=== PATIENT | female | born 1970 | race Caucasian/White ===

== ENCOUNTER 2020-03-21 09:19 | Inpatient (IN) | payer BC ==
[2020-03-21] MEDS ORDERED: Sodium Chloride 0.9% 1,000 ML IV STA (10:13)
[2020-03-21] MEDS ORDERED: Sodium Chloride 0.9% 10 ML Syringe FLUSH PRN (10:13)
--- NOTE | 2020-03-21 10:16 | EDM.PDOC ---
ED HPI GENERAL MEDICAL PROBLEM - General Chief Complaint: Abdominal Pain Stated Complaint: STOMACH PAIN FORM PAST 10 HOURS Time Seen by Provider: 03/21/20 10:05 Source of Information: Reports: Patient, Family, RN Notes Reviewed History Limitations: Reports: No Limitations - History of Present Illness INITIAL COMMENTS - FREE TEXT/NARRATIVE: 50-year-old female presents emergency department a complaint of abdominal pain, she states is predominantly in the right lower quadrant started at 330 this morning does have waves of nausea no vomiting states she is doing okay with bowel movements no shortness of breath or chest pain no fevers no history of abdominal surgeries Abdomen Pain Score (Numeric/FACES): 7 - Related Data Allergies Allergy/AdvReac Type Severity Reaction Status Date / Time No Known Allergies Allergy Verified 03/21/20 09:39 Home Meds: Home Meds Fluticasone Propion/Salmeterol [Advair 250-50 Diskus] 1 puff IH BID 03/21/20 [History] Fluticasone Propionate [Flonase] 1 dose IH BEDTIME 03/21/20 [History] Naproxen Sodium [Aleve] 220 mg PO BEDTIME 03/21/20 [History] Sertraline [Zoloft] 25 mg PO BEDTIME 03/21/20 [History] diphenhydrAMINE [Benadryl] 50 mg PO BEDTIME 03/21/20 [History] lisinopriL [Lisinopril] 20 mg PO BEDTIME 03/21/20 [History] traZODone 200 mg PO BEDTIME 03/21/20 [History] Past Medical History HEENT History: Reports: Impaired Vision Cardiovascular History: Reports: Hypertension Respiratory History: Reports: Asthma DIRECTOR CPG History: Reports: Neurological History: Reports: Migraines - Past Surgical History Head Surgeries/Procedures: Reports: None HEENT Surgical History: Reports: None Cardiovascular Surgical History: Reports: None Respiratory Surgical History: Reports: None Female Surgical History: Reports: None Neurological Surgical History: Reports: C-Spine Dermatological Surgical History: Reports: None Social & Family History - Tobacco Use Smoking Status *Q: Never Smoker - Caffeine Use Caffeine Use: Reports: Coffee - Alcohol Use Days Per Week of Alcohol Use: 7 Number of Drinks Per Day: 1 Total Drinks Per Week: 7 - Recreational Drug Use Recreational Drug Use: No ED ROS GENERAL - Review of Systems Review Of Systems: See Below Constitutional: Denies: Fever, Chills Respiratory: Reports: No Symptoms Cardiovascular: Reports: No Symptoms GI/Abdominal: Reports: Abdominal Pain, Flatus, Nausea. Denies: Constipation, Diarrhea, Vomiting : Reports: No Symptoms Musculoskeletal: Reports: Back Pain ED EXAM, GI/ABD - Physical Exam Exam: See Below Exam Limited By: No Limitations General Appearance: Alert, WD/WN, No Apparent Distress Respiratory/Chest: No Respiratory Distress, Lungs Clear, Normal Breath Sounds, No Accessory Muscle Use, Chest Non-Tender Cardiovascular: Regular Rate, Rhythm, No Murmur GI/Abdominal Exam: Normal Bowel Sounds, Soft, No Organomegaly, No Distention, No Abnormal Bruit, Tender (Right lower quadrant) Back Exam: Normal Inspection, Full Range of Motion, CVA Tenderness (R). No: CVA Tenderness (L) Course - Vital Signs Last Recorded V/S: Last Vital Signs Temp 98.4 F 03/21/20 09:44 Pulse 80 03/21/20 09:44 Resp 16 03/21/20 09:44 BP 141/92 H 03/21/20 09:44 Pulse Ox 99 03/21/20 09:44 - Orders/Labs/Meds Orders: Active Orders 24 hr Category Date Time Status Peripheral IV Care [RC] . DIRECTED Care 03/21/20 10:13 Active Iopamidol [Isovue-300 (61%)] Med 03/21/20 10:30 Active 100 ml IV . DIRECTED Sodium Chloride 0.9% [Normal Saline] 1,000 ml Med 03/21/20 10:13 Active IV .BOLUS Sodium Chloride 0.9% [Normal Saline] 80 ml Med 03/21/20 10:30 Active IV ASDIRECTED Sodium Chloride 0.9% [Saline Flush] Med 03/21/20 10:13 Active 10 ml FLUSH ASDIRECTED PRN Peripheral IV Insertion Adult [OM.PC] Urgent Oth 03/21/20 10:13 Ordered Medication Orders Sodium Chloride (Normal Saline) 1,000 mls @ 500 mls/hr IV .BOLUS STA Stop: 03/21/20 12:12 Last Admin: 03/21/20 11:05 Dose: 500 mls/hr Documented by: JOLENE Sodium Chloride (Normal Saline) 80 mls @ 3 mls/sec IV ASDIRECTED [facility] Last Admin: 03/21/20 10:48 Dose: 3 mls/sec Documented by: JONATHAN Iopamidol (Isovue-300 (61%)) 100 ml IV . DIRECTED SCOTTIE Last Admin: 03/21/20 10:47 Dose: 100 ml Documented by: JONATHAN Sodium Chloride (Saline Flush) 10 ml FLUSH ASDIRECTED PRN PRN Reason: Keep Vein Open Last Admin: 03/21/20 10:48 Dose: 10 ml Documented by: JONATHAN Labs: Laboratory Tests 03/21/20 03/21/20 03/21/20 Range/Units 10:22 10:22 10:22 WBC 17.3 H (4.5-11.0) K/uL RBC 3.96 (3.30-5.50) M/uL Hgb 13.0 (12.0-15.0) g/dL Hct 38.8 (36.0-48.0) % MCV 98 (80-98) fL MCH 33 H (27-31) pg MCHC 34 (32-36) % Plt Count 270 (150-400) K/uL Neut % (Auto) 93 H (36-66) % Lymph % (Auto) 3 L (24-44) % Pinal % (Auto) 4 (2-6) % Eos % (Auto) 0 L (2-4) % Baso % (Auto) 0 (0-1) % Sodium 139 L (140-148) mmol/L Potassium 3.6 (3.6-5.2) mmol/L Chloride 102 (100-108) mmol/L Carbon Dioxide 26 (21-32) mmol/L Anion Gap 14.6 H (5.0-14.0) mmol/L BUN 20 H (7-18) mg/dL Creatinine 0.9 (0.6-1.0) mg/dL Est Cr Clr Drug Dosing 68.79 mL/min Estimated GFR (MDRD) > 60 (>60) Glucose 136 H (74-106) mg/dL Lactic Acid 1.8 (0.4-2.0) mmol/L Calcium 8.8 (8.5-10.1) mg/dL Total Bilirubin 0.8 (0.2-1.0) mg/dL AST 16 (15-37) U/L ALT 20 (12-78) U/L Alkaline Phosphatase 76 (46-116) U/L Total Protein 7.4 (6.4-8.2) g/dL Albumin 4.1 (3.4-5.0) g/dL Globulin 3.3 (2.3-3.5) g/dL Albumin/Globulin Ratio 1.2 (1.2-2.2) Urine Color (YELLOW) Urine Appearance (CLEAR) Urine pH (5.0-8.0) Ur Specific Reva (1.008-1.030) Urine Protein (NEGATIVE) mg/dL Urine Glucose (UA) (NEGATIVE) mg/dL Urine Ketones (NEGATIVE) mg/dL Urine Occult Blood (NEGATIVE) Urine Nitrite (NEGATIVE) Urine Bilirubin (NEGATIVE) Urine Urobilinogen (0.2-1.0) EU/dL Ur Leukocyte Esterase (NEGATIVE) Urine RBC (0-5) Urine WBC (0-5) Ur Epithelial Cells Urine Bacteria Urine Mucus 03/21/20 Range/Units 10:25 WBC (4.5-11.0) K/uL RBC (3.30-5.50) M/uL Hgb (12.0-15.0) g/dL Hct (36.0-48.0) % MCV (80-98) fL MCH (27-31) pg MCHC (32-36) % Plt Count (150-400) K/uL Neut % (Auto) (36-66) % Lymph % (Auto) (24-44) % Pinal % (Auto) (2-6) % Eos % (Auto) (2-4) % Baso % (Auto) (0-1) % Sodium (140-148) mmol/L Potassium (3.6-5.2) mmol/L Chloride (100-108) mmol/L Carbon Dioxide (21-32) mmol/L Anion Gap (5.0-14.0) mmol/L BUN (7-18) mg/dL Creatinine (0.6-1.0) mg/dL Est Cr Clr Drug Dosing mL/min Estimated GFR (MDRD) (>60) Glucose (74-106) mg/dL Lactic Acid (0.4-2.0) mmol/L Calcium (8.5-10.1) mg/dL Total Bilirubin (0.2-1.0) mg/dL AST (15-37) U/L ALT (12-78) U/L Alkaline Phosphatase (46-116) U/L Total Protein (6.4-8.2) g/dL Albumin (3.4-5.0) g/dL Globulin (2.3-3.5) g/dL Albumin/Globulin Ratio (1.2-2.2) Urine Color Yellow (YELLOW) Urine Appearance Clear (CLEAR) Urine pH 7.0 (5.0-8.0) Ur Specific Reva 1.025 (1.008-1.030) Urine Protein Trace H (NEGATIVE) mg/dL Urine Glucose (UA) Negative (NEGATIVE) mg/dL Urine Ketones Negative (NEGATIVE) mg/dL Urine Occult Blood Negative (NEGATIVE) Urine Nitrite Negative (NEGATIVE) Urine Bilirubin Negative (NEGATIVE) Urine Urobilinogen 2.0 H (0.2-1.0) EU/dL Ur Leukocyte Esterase Negative (NEGATIVE) Urine RBC Not seen (0-5) Urine WBC 0-5 (0-5) Ur Epithelial Cells Not seen Urine Bacteria Not seen Urine Mucus Few Meds: Medications Generic Name Dose Route Start Last Admin Trade Name Freq PRN Reason Stop Dose Admin Sodium Chloride 1,000 mls @ 500 mls/hr 03/21/20 10:13 03/21/20 11:05 Normal Saline IV 03/21/20 12:12 500 mls/hr .BOLUS STA Administration Sodium Chloride 80 mls @ 3 mls/sec 03/21/20 10:30 03/21/20 10:48 Normal Saline IV 3 mls/sec ASDIRECTED SCOTTIE Administration Iopamidol 100 ml 03/21/20 10:30 03/21/20 10:47 Isovue-300 (61%) IV 100 ml . DIRECTED SCOTTIE Administration Sodium Chloride 10 ml 03/21/20 10:13 03/21/20 10:48 Saline Flush FLUSH 10 ml ASDIRECTED PRN Administration Keep Vein Open Discontinued Medications Generic Name Dose Route Start Last Admin Trade Name Freq PRN Reason Stop Dose Admin Fentanyl 50 mcg 03/21/20 11:40 Sublimaze IVPUSH 03/21/20 11:41 ONETIME ONE Ondansetron HCl 4 mg 03/21/20 11:40 Zofran IVPUSH 03/21/20 11:41 ONETIME ONE Departure - Departure Time of Disposition: 11:47 Disposition: Admitted As Inpatient 68 Condition: Fair Clinical Impression: Appendicitis Qualifiers: Appendicitis type: acute appendicitis Acute appendicitis type: with localized peritonitis Appendicitis gangrene presence: without gangrene Appendicitis perforation presence: without perforation Appendicitis abscess presence: without abscess Qualified Code(s): K35.30 - Acute appendicitis with localized peritonitis, without perforation or gangrene - Discharge Information Instructions: Appendicitis, Adult Referrals: PCP,None [Primary Care Provider] - Forms: ED Department Discharge Sepsis Event Note (ED) - Evaluation Sepsis Screening Result: No Definite Risk - Focused Exam Vital Signs: Vital Signs Temp Pulse Resp BP Pulse Ox 03/21/20 09:44 98.4 F 80 16 141/92 H 99 03/21/20 09:43 98.4 F 80 16 141/92 H 99 - My Orders Last 24 Hours: My Active Orders 03/21/20 10:13 Peripheral IV Care [RC] . DIRECTED Sodium Chloride 0.9% [Normal Saline] 1,000 ml IV .BOLUS Sodium Chloride 0.9% [Saline Flush] 10 ml FLUSH ASDIRECTED PRN Peripheral IV Insertion Adult [OM.PC] Urgent 03/21/20 10:30 Iopamidol [Isovue-300 (61%)] 100 ml IV . DIRECTED Sodium Chloride 0.9% [Normal Saline] 80 ml IV ASDIRECTED - Assessment/Plan Last 24 Hours: My Active Orders 03/21/20 10:13 Peripheral IV Care [RC] . DIRECTED Sodium Chloride 0.9% [Normal Saline] 1,000 ml IV .BOLUS Sodium Chloride 0.9% [Saline Flush] 10 ml FLUSH ASDIRECTED PRN Peripheral IV Insertion Adult [OM.PC] Urgent 03/21/20 10:30 Iopamidol [Isovue-300 (61%)] 100 ml IV . DIRECTED Sodium Chloride 0.9% [Normal Saline] 80 ml IV ASDIRECTED Plan: Assessment Acuity = acute Site and laterality = acute appendicitis Etiology = unknown Manifestations = abdominal pain Location of injury = Home Lab values = WBC elevated 17.5 consistent with a leukocytosis remainder of CBC, CMP and urinalysis unremarkable CT scan does show acute appendicitis without free air or abscess Plan Call discussed case Dr. Price at 1140 kindly agreed to come evaluate patient in the hospital plan for laparoscopic appendectomy This note was dictated using [email or web address] voice recognition software please call with any questions on syntax or grammar.
[2020-03-21] MEDS ORDERED: Iopamidol 612 MG/ML 100 ML Bottle IV SCH (10:30)
[2020-03-21] MEDS ORDERED: Sodium Chloride 0.9% 80 ML IV SCH (10:30)
--- NOTE | 2020-03-21 11:38 | CRLCT ---
Indication: Right lower quadrant pain. Technique: Multiple contiguous axial images were obtained from the lung bases through the symphysis pubis after the intravenous administration of 100 cc Isovue-300. Please note that all CT scans at this facility use dose modulation, iterative reconstruction, and/or weight-based dosing when appropriate to reduce radiation dose to as low as reasonably achievable. Comparison: None Findings: The lung bases are clear. The heart is normal in size. No pericardial effusion is identified. The liver, spleen, pancreas, gallbladder, adrenals, and kidneys are normal. No intrahepatic biliary ductal dilatation is identified. No hydronephrosis is identified. In the pelvis, the uterus and ovaries are grossly normal morphology. The urinary bladder is grossly normal. The small and large bowel are normal in caliber. Fat stranding is identified in the right lower quadrant surrounding an enlarged appendix. No abscess is identified. No free air is identified. The appendix measures 12 mm in size. A minimal amount of free fluid is identified in the right lower quadrant. No free air is identified within the abdomen or pelvis. The aorta is normal in caliber. No lytic or blastic lesions of the spine are identified. Impression: Findings consistent with appendicitis. No abscess or free air is identified. These findings were called to Officer at the time of this dictation. Please note that all CT scans at this facility use dose modulation, iterative reconstruction, and/or weight-based dosing when appropriate to reduce radiation dose to as low as reasonably achievable. Dictated by Jennifer Edwards MD @ Mar 21 2020 11:26AM Signed by Dr. Jennifer Edwards @ Mar 21 2020 11:38AM
[2020-03-21] MEDS ORDERED: Ondansetron 4 MG/2 ML SDV IVPUSH ONE (11:40)
[2020-03-21] MEDS ORDERED: fentaNYL 100 MCG/2 ML SDV IVPUSH ONE (11:40)
[2020-03-21] MEDS ORDERED: Ondansetron 4 MG/2 ML SDV IV PRN (11:52)
[2020-03-21] MEDS ORDERED: Ampicillin/Sulbactam Na 3 GM in Sodium Chloride 0.9% 100 ML IV SCH (12:30)
[2020-03-21] MEDS: Lactated Ringers 1,000 ML IV SCH ×2 (13:10→23:35)
[2020-03-21] MEDS: fentaNYL 100 MCG/2 ML SDV IVPUSH PRN ×4 (13:51→23:38)
[2020-03-21] MEDS ORDERED: Albuterol 8 GM Inhaler INH PRN (13:52)
[2020-03-21] MEDS ORDERED: Naproxen 250 MG Tab PO PRN (14:23)
[2020-03-21] MEDS ORDERED: Diclofenac Sodium 75 MG Tab.EC PO SCH (17:00)
[2020-03-21] MEDS: Ampicillin/Sulbactam Na 3 GM in Sodium Chloride 0.9% 100 ML IV SCH ×2 (18:04→23:32)
[2020-03-21] MEDS ORDERED: Diclofenac Sodium 75 MG Tab.EC PO PRN (18:28)
[2020-03-21] MEDS ORDERED: Non-Formulary Medication 1 Each (Trazodone [Trazodone] 200 MG) PO SCH (21:00)
[2020-03-21] MEDS ORDERED: Fluticasone Propionate Nasal Spray 16 GM Bottle NAS SCH (21:00)
[2020-03-21] MEDS ORDERED: traZODone 50 MG Tab PO SCH (21:00)
[2020-03-21] MEDS ORDERED: DIPHENHYDRAMINE 50 MG PO SCH (21:00)
[2020-03-21] MEDS ORDERED: diphenhydrAMINE 25 MG Cap PO SCH (21:00)
[2020-03-21] MEDS ORDERED: Non-Formulary Medication 1 Each (Fluticasone Propion/Salmeterol [Advair 250-50 Diskus] 1 P IH SCH (21:00)
[2020-03-21] MEDS ORDERED: Lisinopril 20 MG Tab PO SCH ×2 (21:00)
[2020-03-21] MEDS ORDERED: Sertraline 25 MG Tab PO SCH (21:00)
[2020-03-21] MEDS: WIXELA INH SCH (21:42)
[2020-03-22] MEDS: Ampicillin/Sulbactam Na 3 GM in Sodium Chloride 0.9% 100 ML IV SCH ×4 (06:18→23:33)
[2020-03-22] MEDS ORDERED: Bupivacaine 0.5%/EPINEPHrine 1:200,000 50 ML MDV ONE (06:37)
[2020-03-22] MEDS ORDERED: Ropivacaine 36 ML, dexAMETHasone 8 MG, EPINEPHrine 0.4 MG, Sodium Chloride 0.9% 41.6 ML NERVRT SCH ×4 (07:00)
[2020-03-22] MEDS ORDERED: Albuterol/Ipratropium 3.0-0.5 MG/3 ML Neb Soln NEB ONE (07:00)
[2020-03-22] MEDS: WIXELA INH SCH (07:02)
[2020-03-22] MEDS ORDERED: Succinylcholine 200 MG/10 ML MDV ONE (07:05)
[2020-03-22] MEDS ORDERED: Rocuronium 50 MG/5 ML Vial ONE (07:05)
[2020-03-22] MEDS ORDERED: Neostigmine Methylsulfate 1 MG/ML 5 ML Syringe ONE (07:05)
[2020-03-22] MEDS ORDERED: Ondansetron 4 MG/2 ML SDV ONE (07:05)
[2020-03-22] MEDS ORDERED: fentaNYL 250 MCG/5 ML SDV ONE (07:05)
[2020-03-22] MEDS ORDERED: Glycopyrrolate 0.2 MG/ML 5 ML MDV ONE (07:05)
[2020-03-22] MEDS ORDERED: Propofol 200 MG/20 ML SDV ONE (07:05)
[2020-03-22] MEDS ORDERED: Dexamethasone 4 MG/ML SDV ONE (07:05)
[2020-03-22] MEDS ORDERED: Lactated Ringers 1,000 ML ONE (07:39)
[2020-03-22] MEDS ORDERED: Ketorolac 60 MG/2 ML SDV ONE (08:41)
[2020-03-22] MEDS ORDERED: HYDROmorphone 0.5 MG/0.5 ML Syringe IVPUSH PRN (09:44)
[2020-03-22] MEDS ORDERED: oxyCODONE 5 MG Tab PO PRN (09:45)
[2020-03-22] MEDS ORDERED: Dextrose 5%-Lactated Ringers 1,000 ML IV SCH (09:45)
[2020-03-22] MEDS ORDERED: HYDROmorphone 1 MG/ML Syringe IV PRN (09:45)
[2020-03-22] MEDS ORDERED: hydrOXYzine HCL 100 MG/2 ML SDV IM PRN (09:46)
[2020-03-22] MEDS ORDERED: Acetaminophen 500 MG Tab PO SCH (10:00)
[2020-03-22] MEDS ORDERED: Acetaminophen/HYDROcodone 325-5 MG Tab PO PRN (13:19)
[2020-03-22] MEDS: Cyclobenzaprine 10 MG Tab PO PRN ×2 (15:35→23:36)
[2020-03-22] MEDS: Acetaminophen/HYDROcodone 325-5 MG Tab PO PRN ×2 (17:49→21:50)
[2020-03-23] MEDS: Acetaminophen/HYDROcodone 325-5 MG Tab PO PRN ×3 (03:59→08:54)
[2020-03-23] MEDS: Ampicillin/Sulbactam Na 3 GM in Sodium Chloride 0.9% 100 ML IV SCH (06:03)
[2020-03-23] MEDS: Cyclobenzaprine 10 MG Tab PO PRN (08:53)
--- NOTE | 2020-03-23 15:12 | DISCH ---
ADMISSION DIAGNOSIS: Abdominal pain. DISCHARGE DIAGNOSES: Diagnostic laparoscopy with: 1. Partial colectomy involving removal of overlying appendix. 2. Drainage of pericolonic abscess. POSTOPERATIVE DIAGNOSES: 1. Focally perforated appendix with inflammatory necrosis extending to cecal base. 2. Pericolonic abscess. Date of surgery 03/22/2020. Surgeon: Robin Price MD. HISTORY: Kylee Guerra is a 50-year-old female who presented to [place], [place], with abdominal pain on 03/21/2020. She had abdominal pain for the past 10 hours associated with waves of nausea. After preoperative evaluation and discussion of possible risks and possible complications, she wished to proceed with surgical procedure. HOSPITAL COURSE: Kylee had her surgery on 03/22/2020. She had no operative complications. On postoperative day #1, vital signs were stable. Pain was well managed. Activity was good. She tolerated a regular diet, and she was able to be discharged to home. PHYSICAL EXAMINATION: GENERAL: Kylee Guerra is a 50-year-old female. Height is 5 feet 5 inches, weight is 173 pounds. VITAL SIGNS: TPR at 0723; 97.4, 60, 18, blood pressure 117/72. HEENT: Negative. NECK: Supple. HEART: Regular rate and rhythm. LUNGS: Clear. ABDOMEN: JONI drain intact, will be removed prior to discharge and that has put out 70 mL of serosanguineous drainage. Abdominal binder is on. EXTREMITIES: Without peripheral edema. DISPOSITION: Discharged to home. CONDITION: Stable and improving. FOLLOWUP: Appointment with primary care provider in 1 week to have sutures removed. HOME MEDICATION: 1. Augmentin 875 mg 1 tablet b.i.d. for 5 days #10. 2. Colace 100 mg oral twice daily #60. 3. Milk of magnesia 30 mL to take one tomorrow 03/24/2020, if needed, repeat in a.m., sent to home with patient. 4. Belmont 5/325 mg 1 to 2 every 4 hours p.r.n. pain #42. 5. To resume home medication of Proventil inhaler 2 puffs every 4 hours p.r.n. shortness of breath, fluticasone propionate/salmeterol one puff inhalation twice daily, naproxen sodium 220 mg oral at bedtime, sertraline 25 mg oral at bedtime, Benadryl 50 mg at bedtime, lisinopril 40 mg oral at bedtime, trazodone 100 mg oral at bedtime. DISCHARGE INSTRUCTIONS: DIET: Usual diet as tolerated. Drink 8 to 10 glasses of water a day. ACTIVITY: No lifting over 10 pounds for 1 week. OTHER ACTIVITY: Walk at least 6 times inside your home. DRIVING AFTER DISCHARGE: Do not drive for 1 week and while on pain medication. SHOWER/BATHING: May shower. Keep operative site clean and dry. Wear abdominal binder for 2 weeks and longer if tolerated. Notify provider if any fever, increased pain, swelling, redness, drainage, nausea, or vomiting. SPECIAL INSTRUCTION: 1. Follow up with your medical provider in 1 week to have sutures removed. 2. Use incentive spirometer 10 times every hour while awake for 1 week.
--- NOTE | 2020-03-25 12:09 | OR ---
DATE OF PROCEDURE: 03/22/2020 SURGEON: Robin Price MD PREOPERATIVE DIAGNOSIS: Acute appendicitis. POSTOPERATIVE DIAGNOSES: 1. Focal area of perforated appendicitis with inflammatory necrosis extending onto the cecal base. 2. Pericolonic abscess. PROCEDURE: Diagnostic laparoscopy with: 1. Partial cecectomy including removal of overlying appendix. 2. Drainage of pericolonic abscess. ANESTHESIA: General. INDICATIONS FOR PROCEDURE: This is a 50-year-old female, admitted overnight with a picture of acute appendicitis. Preoperative antibiotics have been given and the plan is to proceed with a diagnostic laparoscopy with laparotomy if necessary, and appendectomy. The procedures as indicated might be necessary was reviewed with the patient and . Otherwise, risks such as leaks from the GI tract staple line, postoperative abscess formation, and a remote possibility of cardiopulmonary, septic, or hemorrhagic complications leading to were discussed, and the patient wishes to proceed. DETAILS OF PROCEDURE: The patient was taken to the operating room. After general endotracheal anesthesia was induced, Lundberg catheter was inserted, and the abdomen prepped and draped. Three fingerbreadths superior and to the left of the umbilicus, a transverse incision was made and the peritoneal cavity entered under direct vision with an Optiview trocar, inflated to 15 mmHg with CO2. Laparoscope was then reinserted. No underlying trocar insertion site injuries were seen. Following this, 12 mm trocar was placed in the left lower quadrant and right upper quadrant and the lower abdomen examined. As the cecum was retracted upward, the patient was noted to have some thin purulence located beginning in the upper pelvis extending along the area of the cecal base and from there up along the lateral aspect of the descending colon just to the point below the liver. This abscess fluid was then evacuated and sent for culture. The appendix was then mobilized upward. This patient had what appeared to be focally perforated appendicitis. With the appendix being retracted anteriorly, the mesoappendix was divided with Harmonic scalpel down along the cecal base. The necrosis and inflammation of the appendix appeared to extend somewhat onto the cecum, therefore we elected to proceed with a partial cecectomy, which would provide a more satisfactory and safe staple line. This was accomplished with 2 firings of the SUGEY purple loads. The appendix and cecal base were then placed in a specimen bag and retrieved through the left lower quadrant site without any overt contamination of the soft tissues in the abdominal wall during its passage. The area of dissection was inspected. There was quite a bit of edema in the area of the mesoappendix division site and this area along with the cecal staple line was then reinforced with 4 mL of fibrin sealant and some omentum then placed over the area to provide some additional coverage. A Eduard-Gautam drain was then placed to the 5 mm trocar site and the right flank and positioned across the area above the cecal staple line and from there down into the pelvis. At that point, no further problems were noted. Bilateral transversus abdominis plane blocks were placed and the trocars were sequentially removed. The fascia at the sites was closed with 0 Vicryl stitch and the skin with 4-0 Vicryl skin stitch. The wounds were then anesthetized with 1% lidocaine as well, and the patient was taken to the recovery room in satisfactory condition. There were no evident complications. Robin Price MD /[id number]
== END 2020-03-23 09:05 | disposition home or self-care (01) | DRG 221 ==
LOC: JP.ED 09:19 → JP.MS 11:52
PROVIDERS: ADMIT Surgery; ATTEND Surgery
PROC: 0DBH4ZZ Excision of Cecum, Percutaneous Endoscopic Approach (ICD-10-PCS; principal; 2020-03-22)
PROC: 0W9G4ZZ Drainage of Peritoneal Cavity, Percutaneous Endoscopic Approach (ICD-10-PCS; 2020-03-22)
DX: K35.33 Acute appendicitis with perforation, localized peritonitis, and gangrene, with abscess (principal); K55.049 Acute infarction of large intestine, extent unspecified; Z20.828 Contact with and (suspected) exposure to other viral communicable diseases; J45.909 Unspecified asthma, uncomplicated; I10 Essential (primary) hypertension; Z79.899 Other long term (current) drug therapy
CPT/HCPCS: 36415; 74177; 80053; 81001; 83605; 85025; 87070; 87075; 87205; 94640; 94762; 96361; 96374; 96375; 99284; 99285-25; A9270-GY; J0171; J0295; J0330; J1100; J1170; J1885; J2405; J2704; J2710; J2795; J3010; J3490; J7030; J7050; J7120; J7121; J7620-GY; Q9967; U0002